=== PATIENT | female | born 1960 | race African-American/Black ===

== ENCOUNTER 2016-04-18 19:12 | Emergency (ER) | payer MEDICAID, OTHER ==
[~2016-04-18] VITALS: Ht 165.1 cm; Wt 111.6 kg
[~2016-04-18 19:12] MED LIST: IBUP-1060 PO; OXYC-323 PO
[2016-04-18 19:29] VITALS: BP 185/86
[2016-04-18] MEDS ORDERED: OXYCODONE/APAP 7.5/325 TABLET. PO ONE (19:45)
[2016-04-18] MEDS ORDERED: OXYC-323 PO (19:59)
--- NOTE | 2016-04-18 19:59 | PHYS DOC ---
Past Medical History Past Medical History: Coagulopathy, Fibromyalgia, Other Additional Past Medical Histor: chronic bronchitis, prolapsed microvalve, endometriosis Past Surgical History: Other Additional Past Surgical Histo: hernia sx Alcohol Use: None Drug Use: None Adult General Chief Complaint Chief Complaint: SHOULDER INJURY HPI HPI Patient is a 56 year old female with history of fibromyalgia who presents complaining of persistent right shoulder pain since a fall on Sunday. She was seen on 04/14/16. She was discharged home. An x-ray or shoulder was done that evening. She was called the following morning by the emergency physician as a radiology overread found findings suspicious for a fracture of the right greater tuberosity. Patient denies numbness or motor weakness. She has pain in her left shoulder hips and back as well, but this is not as severe. She has limitation of range of motion of the right shoulder due to pain. He was instructed after being called Sunday to return to the emergency department, but due to the bad weather over the weekend she stayed home. Review of Systems Review of Systems Constitutional: Denies fever or chills Eyes: Denies change in visual acuity, redness, or eye pain HENT: Denies nasal congestion or sore throat Respiratory: Denies cough or shortness of breath Cardiovascular: Denies chest pain GI: Denies abdominal pain, nausea, vomiting, bloody stools or diarrhea : Denies dysuria or hematuria Musculoskeletal: Reports right shoulder pain limitation or range of motion of the right shoulder secondary to pain. Also complains of mild pain in the left shoulder, bilateral hips, and back. Integument: Denies rash or skin lesions Neurologic: Denies headache, focal weakness or sensory changes Current Medications Current Medications Current Medications Medications (Trade) Dose Ordered Sig/Kevan Start Time Stop Time Status Last Admin Dose Admin Oxycodone/ Acetaminophen (Percocet 7.5/ 325) 1 tab 1X ONCE 04/18/16 19:45 04/18/16 19:46 DC 04/18/16 19:45 1 TAB Allergies Allergies Allergies Coded Allergies Type Severity Reaction Last Updated Verified codeine Allergy Unknown 04/14/16 Yes Physical Exam Physical Exam Constitutional: Well developed, well nourished, no acute distress, non-toxic appearance. HENT: Normocephalic, atraumatic, bilateral external ears normal, oropharynx moist, no oral exudates, nose normal. Eyes: PERRLA, EOMI, conjunctiva normal, no discharge. Neck: Normal range of motion, no tenderness, supple, no stridor. Cardiovascular:Heart rate regular rhythm, no murmur Lungs & Thorax: Bilateral breath sounds clear to auscultation Abdomen: Bowel sounds normal, soft, no tenderness, no masses, no pulsatile masses. Skin: Warm, dry, no erythema, no rash. Back: No tenderness, no CVA tenderness. Extremities: Significant tenderness to palpation over the entire right shoulder. No obvious swelling. Limitation of range of motion secondary to pain. Painful range of motion in the right shoulder. All other extremities appear atraumatic. Neurologic: Alert and oriented X 3, normal motor function, normal sensory function, no focal deficits noted. Psychologic: Affect normal, judgement normal, mood normal. Current Patient Data Vital Signs Vital Signs Date Time Temp Pulse Resp B/P Pulse Ox O2 Delivery O2 Flow Rate FiO2 04/18/16 19:45 16 Room Air 04/18/16 19:30 97.4 68 185/86 97 97.4 EKG EKG [] Radiology/Procedures Radiology/Procedures [] Course & Med Decision Making Course & Med Decision Making Pertinent Labs and Imaging studies reviewed. (See chart for details) I have reviewed the right shoulder x-ray from 04/14/16. I do see a small lucency under the greater tuberosity which is certainly suspicious for fracture. Given the patient's amount of pain, I'm going to put her in the right shoulder mobilizer, write her for Percocet, and give her the number for orthopedic follow-up. Return precautions were discussed and all questions were answered prior to discharge. Dragon Disclaimer Dragon Disclaimer This electronic medical record was generated, in whole or in part, using a voice recognition dictation system. Departure Departure Impression: Primary Impression: Greater tuberosity of humerus fracture Disposition: 01 HOME, SELF-CARE Condition: GOOD Referrals: NO PCP (PCP) AGUSTÍN SANTOS MD Patient Instructions: Shoulder Fracture Additional Instructions: Take the prescribed pain medication as directed, as needed. Wear the shoulder immobilizer throughout the day. He can take this off when you sleep or when you get in the shower. Follow up with the orthopedic surgeon, Dr. Arreguin, as soon as he can schedule you for an appointment. I recommend calling his office tomorrow. Is also probably a good idea to follow up with your primary care physician to let them know that you have fractured your shoulder. Scripts Oxycodone/Apap 5-325 (Percocet 5-325 Mg Tablet)1 Each Tablet1-2 Tab PO Q4-6HRS PRN PAIN #40 TAB Ref 0 Prov:ROBINSON MCHUGH MD 04/18/16 Problem Qualifiers Primary Impression: Greater tuberosity of humerus fracture Encounter type: initial encounter Fracture type: closed Fracture alignment : nondisplaced Laterality: right Qualified Code: S42.254A - Nondisplaced fracture of greater tuberosity of right humerus, initial encounter for closed fracture ROBINSON MCHUGH MD Apr 18, 2016 19:39
== END 2016-04-18 20:12 | disposition home or self-care (01) ==
LOC: ER 19:12
DX: S42.254A Nondisplaced fracture of greater tuberosity of right humerus, initial encounter for closed fracture (principal); M25.512 Pain in left shoulder; M25.559 Pain in unspecified hip; M54.9 Dorsalgia, unspecified; M79.7 Fibromyalgia; Z88.5 Allergy status to narcotic agent; W19.XXXA Unspecified fall, initial encounter; Y93.89 Activity, other specified; Y92.89 Other specified places as the place of occurrence of the external cause; Y99.8 Other external cause status
CPT/HCPCS: 29105; 99283-25

== ENCOUNTER → 2016-05-24 | Outpatient (CLI) | payer MEDICAID ==
[2016-04-18 19:30] VITALS: BP 185/86
--- NOTE | 2016-05-24 13:33 | KCIC ---
PROCEDURE MR of the right shoulder HISTORY Right shoulder pain and decreased range of motion. Injury May 15, 2016. COMPARISON None TECHNIQUE Standard images are obtained. FINDINGS Acromioclavicular joint is mildly degenerative. There are undersurface osteophytes with some mass effect upon the supraspinatus. Full-thickness tear of the supraspinatus tendon measures 2.5 centimeters AP diameter with 2.0 cm retraction. Mild muscle atrophy. Tendinosis with signal and thickening through the infraspinatus tendon. Partial subscapularis tendon tear. Mild fluid in the subdeltoid bursa. The labrum evaluation is somewhat limited by motion degradation. There is degenerative signal within the superior labrum but no clear-cut tear. Small glenohumeral joint effusion. No advanced glenohumeral primary osteoarthritis. The biceps tendon is intact. No bone lesion or acute fracture. No acute soft tissue injury. IMPRESSION 1. Near complete rupture of the supraspinatus tendon with moderate retraction. Mild partial subscapularis tendon tear. 2. Small joint effusion. Electronically signed by: Rubin Marie MD (May 24, 2016 13:32:05)
== END | disposition home or self-care (01) ==
LOC: KCIC MRI 10:35
PROVIDERS: ATTEND Nurse Practitioner Gerontology
DX: S49.91XA Unspecified injury of right shoulder and upper arm, initial encounter (principal)
CPT/HCPCS: 73221

== ENCOUNTER 2016-08-09 09:33 | Observation (INO) | payer MEDICAID ==
[2016-08-09] VITALS (7 sets, daily range): BP systolic 135–166; BP diastolic 71–87
[~2016-08-09] VITALS: Ht 165.1 cm; Wt 107.0 kg
[~2016-08-09 09:33] MED LIST changes: +BACL10TA PO; +BUPIVACAINE MPF 0.5% 30 ML VIAL. ONE; +CLON0.5T3 PO; +DULO60CA6 PO; +EPINEPHrine VIAL 30 MG/30 ML VIAL ONE; +FLUT9.9S NS; +HYDROmorphone 2 MG/ML VIAL IV PRN; +IV RINGERS,LACTATED 1000ML 1,000 ML IV SCH; +LIDO700A4 TP; +LIDOCAINE 1% 1 ML SYRINGE. ID PRN; +LIDOCAINE 1% 20 ML VIAL. ONE; +MELA3TAB PO; +OLIV250C PO; +ONDANSETRON PF 4 MG/2 ML VIAL. IV PRN; +PROAIR HFA8.5 GM INH; +PROCHLORPERAZINE 10 MG/2 ML VIAL. IV PRN; +SODI30SP NS; +fentaNYL PF VIAL 100 MCG/2 ML VIAL IV PRN
[2016-08-09 10:07] LABS: NEG OBC UR NEG; POS OBC UR POS
[2016-08-09] MEDS ORDERED: PROPOFOL 20 ML IV ONE (10:52)
[2016-08-09] MEDS ORDERED: LIDOCAINE 2% 100 MG/5 ML SYRINGE. ONE (10:52)
[2016-08-09] MEDS ORDERED: fentaNYL PF VIAL 100 MCG/2 ML VIAL ONE ×2 (10:52→12:20)
[2016-08-09] MEDS ORDERED: MIDAZOLAM HCL/PF 2 MG/2 ML VIAL. ONE (11:01)
--- NOTE | 2016-08-09 11:20 | DISCH ---
DISCHARGE INSTRUCTIONS Condition on Discharge Condition on Discharge: Stable Activity After Discharge Activity Instructions for Disc: Other, see below Other activity instructions: arm to remain in sling Bathing Instructions: Shower-keep dressing dry Weight Bearing Status after Di: Non weight bearing Diet after Discharge Diet after Discharge: Regular Wound Incision Care Wound/Incision Care: Ice to area for comfort, Keep wound/cast CDI, Change dressing Contacting the DRCarmen after DC Call your doctor for: Concerns you may have Follow-Up Follow up with: Lurdes or Venkata in 2wks MARY VELOZ II, MD August 09, 2016 11:20
[2016-08-09] MEDS ORDERED: SUCCINYLCHOLINE 200 MG/10 ML VIAL. ONE (11:48)
[2016-08-09] MEDS ORDERED: DESFLURANE 61 TO 120 MINUTES IH ONE (12:24)
[2016-08-09] MEDS ORDERED: PHENYLEPHRINE in 0.9% NACL PF 1 MG/10 ML DISP.SYRIN. IV ONE (12:24)
[2016-08-09] MEDS ORDERED: DEXAMETHASONE SOD PHOS 20 MG/5 ML VIAL. ONE (12:24)
[2016-08-09] MEDS ORDERED: ONDANSETRON PF 4 MG/2 ML VIAL. ONE (13:04)
--- NOTE | 2016-08-09 13:04 | PDOC ---
BRIEF OPERATIVE NOTE Date: August 09, 2016 Pre-Op Diagnosis R RTC tear Post-Op Diagnosis same Procedure Performed R shoulder arthroscopic RTC repair Surgeon Venkata Handy Man Komal Anesthesiologist Eugenio Anesthesia Type: General, Regional Blood Loss 10mL Complications none MARY VELOZ II, MD August 09, 2016 13:03
[2016-08-09] MEDS: MORPHINE SULFATE 2 MG/ML DISP.SYRIN. IV PRN ×2 (13:16→13:50)
[2016-08-09] MEDS ORDERED: ALBUTEROL SULFATE 2.5 MG/3 ML NEBU. ONE (13:25)
[2016-08-09] MEDS ORDERED: ALBUTEROL SULFATE 2.5 MG/3 ML NEBU. NEB ONE (13:30)
[2016-08-09] MEDS ORDERED: IV DEXTROSE 5 %-0.45 % NACL 1,000 ML IV SCH (14:24)
[2016-08-09] MEDS ORDERED: traMADol 50 MG TABLET PO PRN ×2 (14:30)
[2016-08-09] MEDS ORDERED: HYDROcodone/APAP 10/325 1 TAB TABLET PO PRN (14:30)
[2016-08-09] MEDS ORDERED: PROCHLORPERAZINE 5 MG TABLET. PO PRN (14:30)
[2016-08-09] MEDS ORDERED: CALCIUM CARBONATE 500 MG TAB.CHEW PO PRN (14:30)
[2016-08-09] MEDS ORDERED: HYDROcodone/APAP 7.5/325MG 1 TAB TABLET PO PRN (14:30)
[2016-08-09] MEDS ORDERED: BACLOFEN 10 MG TABLET. PO PRN (14:30)
[2016-08-09] MEDS ORDERED: NON FORMULARY ITEM (Albuterol Sulfate (Proair Hfa Inhaler) 1 PUFF) INH PRN (14:30)
[2016-08-09] MEDS ORDERED: MORPHINE SULFATE 2 MG/ML DISP.SYRIN. IV PRN (14:30)
[2016-08-09] MEDS ORDERED: oxyCODONE/APAP 5/325 1 TAB TABLET PO PRN (14:30)
[2016-08-09] MEDS ORDERED: METOCLOPRAMIDE HCL 10 MG/2 ML VIAL. IV PRN (14:30)
[2016-08-09] MEDS ORDERED: 0.9 % SODIUM CHLORIDE 10 ML DISP.SYRIN. IV PRN (14:30)
[2016-08-09] MEDS ORDERED: ZOLPIDEM 5 MG TABLET. PO PRN (14:30)
[2016-08-09] MEDS ORDERED: clonazePAM 0.5 MG TABLET PO PRN (14:30)
[2016-08-09] MEDS ORDERED: SODIUM CHLORIDE 0.65% NASAL SPRAY 45ML BOTTLE. NS PRN (14:30)
[2016-08-09] MEDS ORDERED: DEXTROSE 50% 25 GM / 50ML DISP.SYRIN. IV PRN (14:30)
[2016-08-09] MEDS ORDERED: ALBUTEROL SULFATE 2.5 MG/3 ML NEBU. NEB PRN (15:30)
[2016-08-09] MEDS: oxyCODONE/APAP 7.5/325 1 TAB TABLET PO PRN ×2 (17:51→21:07)
--- NOTE | 2016-08-09 18:31 | OP ---
DATE OF SURGERY: 08/09/2016 SURGEON: Amarjit Veloz MD PROMOTIONAL DEMONSTRATOR: Iliana Sauceda. ANESTHESIA: General plus regional nerve block. PREOPERATIVE DIAGNOSIS: Right shoulder rotator cuff tear. POSTOPERATIVE DIAGNOSIS: Right shoulder rotator cuff tear. PROCEDURE PERFORMED: Arthroscopic right shoulder rotator cuff repair. COMPONENTS INSERTED: [employer] Healicoil anchors x 2. COMPLICATIONS: None. ESTIMATED BLOOD LOSS: 10 mL. FINDINGS: 1. The patient had a full-thickness tear of supraspinatus was minimally retracted. The tear involved anterior portion of the infraspinatus as well. 2. She had some softening and fissuring of her anteroinferior glenoid cartilage, but otherwise humeral head and glenoid cartilage was intact. 3. Labrum was intact circumferentially. 4. Minor amount of fraying without any swelling or edema in the biceps tendon. 5. No loose bodies present. REASON FOR PROCEDURE: The patient is a very pleasant 56-year-old female who had persistent pain and shoulder weakness, resolved. Clinical and radiographic workup including MRI were performed and discussed with the patient. Please see my outpatient note for full details. We had discussion of risks, benefits, alternatives for her surgery and she elected to proceed. DESCRIPTION OF PROCEDURE: The patient was greeted in the preoperative area by myself. Correct extremity was marked and verified. She was brought back to the preoperative holding area where she had a regional nerve block placed by the anesthesiology team. She was then brought back to the operative suite and antibiotics were started en route. Once in the OR, she was transferred gently supine to the OR table after successful induction of general anesthesia. We then set her up in beach chair position with a large pad under her legs. All pressure points were padded. She was secured to the bed. C-spine was maintained in neutral position. We then proceeded to prep and drape her right upper extremity and shoulder girdle in our usual sterile fashion and conducted a standard preoperative timeout. Ioban was used at the periphery. I then palpated and marked her surface anatomy and used a spinal needle to localize the posterosuperior portal and incised skin in accordance with this. After accomplishing this, I introduced the blunt arthroscopic trocar into the glenohumeral joint. I then used the spinal needle to localize the anterosuperior portal and inserted a switching stick after incising the skin. I then dilated the hole, which to the switching stick and inserted my probe and conducted my diagnostic arthroscopy with the above noted findings. While still in the glenohumeral joint, I used a spinal to localize the lateral portal and incised skin in accordance with this. I dilated the hole and then introduced my shaver to debride the rotator cuff tendon and footprint from this vantage point. I then removed the shaver and withdrew the camera and replaced the blunt arthroscopic trocar inserted into the subacromial space. I then reinserted the camera and shaver and then debrided the bursa with combination of shaver and electrocautery. I then continued on debriding the rotator cuff and the footprint taking care not to decorticate. After this, I tested the mobility of the tendon and was quite mobile. I then used spinal needle to localize an accessory anterosuperior portal for suture retrieval and incised skin in accordance with this and then dilated that hole as well. I then use a tap to create 2 holes for my Healicoil anchor and was then inserted these. I then shuttled the sutures out through the accessory portal. I then used the Braun and [employer] passing device to shuttle the four suture limbs through in a simple configuration. I then tied these down from posterior to anterior using arthroscopic knot tying techniques. At the conclusion of the repair, I tested with gentle rotation noted no gapping at the bone tendon interface. I then took my final pictures then removed all excess arthroscopic fluid and then I withdrew the arthroscopic instrumentation. There were no complications. At the conclusion of surgery, the patient's portal sites were closed with simple interrupted 3-0 nylon. The arm and shoulder were cleansed and dried and a sterile dressing was applied followed by placed into an abduction pillow sling. Postop plan is to discharge her home today. She will be nonweightbearing x 6 weeks. We will get start PT when we see her back in 2 weeks and I will see her follow up with me in 2 weeks, sooner should problems arise. AMARJIT VELOZ MD DR: GRIS/sandra JOB#: [id number] / [id number] NEIL
[2016-08-09] MEDS: CELECOXIB 200 MG CAPSULE. PO SCH (21:00)
[2016-08-09] MEDS ORDERED: MELATONIN 2 MG PO SCH (21:00)
[2016-08-09] MEDS: BENZONATATE 100 MG CAPSULE. PO SCH (21:37)
[2016-08-10] MEDS: oxyCODONE/APAP 7.5/325 1 TAB TABLET PO PRN ×5 (02:02→19:09)
[2016-08-10 02:53] VITALS: BP 149/85
[2016-08-10] MEDS ORDERED: MAGNESIUM HYDROXIDE 2,400 MG/30 ML ORAL.SUSP. PO PRN (06:00)
[2016-08-10 06:34] VITALS: BP 137/90
--- NOTE | 2016-08-10 06:34 | ACF ---
Admission Forms Criteria MUSCULOSKELETAL DISEASE GRG Clinical Indications for Admission to Inpatient Care (Place 'X' for any and all applicable criteria): Hospital admission is needed for appropriate care of the patient because of 1 or more of the following: [ ]I. Fracture, dislocation, or other musculoskeletal injury requiring inpatient care(medical) as indicated by 1 or more of the following(4)(5)(6)(7) [ ]a) Vertebral fracture requiring observation for instability or neurologic compromise (8) [ ]b) Compartment syndrome (proven or cannot be ruled out during observation level of care) (9) [ ]c) Limb-threatening injury [ ]d) Major injury requiring inpatient stabilization such as traction initiation or external fixation before internal fixation or closure of complex or open fracture [ ]e) Major injury requiring inpatient treatment after emergency or observation level care (as appropriate) [ ]f) Severe pain requiring acute inpatient management [ ]g) Injury with suspicion of abuse or neglect (eg., child, dependent elderly) [ ]II. Newly diagnosed or suspected bone, joint, or orthopedic device infection (e.g., osteomyelitis, septic arthritis) needing 1 or more of the following(1)(2)(3) [ ]a) IV antibiotics that cannot be initiated in other than inpatient setting (e.g., patient too unstable or home infusion not available) [ ]b) Device removal or replacement [ ]c) Bone or soft tissue debridement [ ]d) Joint drainage (drain placement or repetitive aspirations) [ ]III. Severe rheumatologic disease (e.g., systemic lupus erythematosus, rheumatoid arthritis) with complications or comorbidities (Also use Optimal Recovery Care Criteria or General Recovery Criteria as appropriate on the basis of predominant condition), including 1 or more of the following( 10)(11)(12)(13) [ ]a) Severe infection (e.g., SPRING COVERER infection, sepsis) (14) [ ]b) Respiratory complications, including 1 or more of the following : [ ]i) Pleural effusion with respiratory compromise [ ]ii) Pulmonary hypertension with congestive failure [ ]iii) Respiratory failure [ ]iv) Pulmonary hemorrhage (15) [ ]c) Hematologic disease, including 1 or more of the following: [ ]i) Coagulopathy with bleeding [ ]ii) Thrombosis with hypercoagulable state [ ]iii) Thrombotic thrombocytopenic purpura [ ]d) Cerebritis with seizures, psychosis, or other severe abnormalities [ ]e) Vertebral destruction with monitoring needed for cervical myelopathy& possible respiratory compromise [ ]f) Exacerbation that requires inpatient treatment (e.g., intravenous immunosuppression) (16) [ ]g) Acute renal failure [ ]h) Cerebritis with seizures, psychosis, Altered mental status, or other neurologic abnormalities [ ]i) Pericardial effusion with tamponade [ ]j) Vertebral destruction, with monitoring needed for cervical myelopathy and possible respiratory compromise [ ]IV. Severe vasculitis with complications or comorbidities (Also use Optimal Recovery Care Criteria General Recovery Criteria as appropriate on the basis of predominant condition), including 1 or more of the following(11)(12)(17)(18)(19)(20) [ ]a) Exacerbation that requires inpatient treatment (e.g., intravenous immunosuppression) (19)(21) [ ]b) Pulmonary hemorrhage (15) [ ]c) SPRING COVERER vasculitis with seizures, psychosis, Altered mental status that is severe or persistent, or other severe abnormalities (22) [ ]d) Cerebral infarction [ ]e) Gastrointestinal ischemia [ ]f) Gangrene or threatened amputation [ ]g) Renal failure (16) [ ]h) Other significant complications of vasculitis ( eg., tissue or organ ischemia, organ dysfunction ) [ ]V. Severe myopathy as indicated by 1 or more of the following (28)(29) [ ]a) New onset of airway compromise or inability to swallow [ ]b) Respiratory deterioration with observation needed for impending respiratory failure [ ]c) Exacerbation that requires inpatient treatment (e.g., intravenous immunosuppression) [ ]. Severe crystal gout (arthropathy) indicated by 1 or more of the following (23)(24) [ ]a) Severe pain requiring acute inpatient management [ ]b) Exacerbation that requires inpatient treatment (e.g., intravenous treatment) [ ]VII.Rhabdomyolysis and 1 or more of the following (25)(26)(27) [ ]a) Acute renal failure [ ]b) Need for intravenous hydration after emergency or observation level care (as appropriate) [ ]c) Inability to maintain oral hydration [ ]d) Change in mental status [ ]e) Electrolyte abnormality that remains after emergency or observation level care (as appropriate) [ ]VIII Post amputation complication, as indicated by ANY ONE of the following [ ]a) Infection [ ]b) Dehiscence [ ]c) Myodesis failure [ ]IX. Severe pain requiring acute inpatient management due to musculoskeletal condition [ ]X. Musculoskeletal Disease and ALL of the following: [ ]a) Symptom or finding for which emergency and observation care have failed or are not considered appropriate (Use General Criteria: Observation Care as appropriate) [ ]b) Presence of ANY ONE of the following [ ]i) A General Admission Criteria [ ]ii) A Pediatric General Admission Criteria The original [facility] [employer] content created by [employer] has been revised. The portions of the content which have been revised are identified through the use of italic text or in bold, and [facility] has neither reviewed nor approved the modified material. All other unmodified content is copyright [facility] [employer]. Please see references footnoted in the original [facility] edition 2016 JAYLEN WILLIS August 10, 2016 06:34 MARY VELOZ II, MD August 11, 2016 09:15
[2016-08-10] MEDS: CELECOXIB 200 MG CAPSULE. PO SCH (08:14)
[2016-08-10] MEDS: BENZONATATE 100 MG CAPSULE. PO SCH ×2 (08:17→14:56)
--- NOTE | 2016-08-10 08:24 | PDOC ---
ORTHO PROGRESS NOTES Subjective She tells me that she received a breathing treatment last night and IV pain medicine and these help her get through the night. She is feeling a little bit better today. She is feeling back to her baseline breathing. Vitals Vital Signs Date Time Temp Pulse Resp B/P (MAP) Pulse Ox O2 Delivery O2 Flow Rate FiO2 08/10/16 06:36 20 08/10/16 06:34 97.8 67 137/90 (106) 96 Nasal Cannula 2.0 97.8 Labs Laboratory Tests Test 08/09/16 09:49 Urine Test Negative (NEG) Laboratory Tests Test 08/09/16 09:49 Urine Test Negative (NEG) Notes She is awake and alert. Sitting in bed. Dressings are intact. Motor and sensation are intact median, radial, and ulnar nerves in her hand. Assessment and Plan She underwent an arthroscopic right shoulder rotator cuff repair was admitted for pain control and observation regarding her chronic bronchitis. She feels she is back to baseline regarding this. MARY VELOZ II, MD August 10, 2016 08:24
--- NOTE | 2016-08-10 08:27 | PDOC3 ---
Discharge Summary Visit Information Date of Admission: August 09, 2016 Date of Discharge: August 10, 2016 Admitting Diagnosis: right shoulder arthroscopic rotator cuff repair, chronic Final Diagnosis Same as admitting Brief Hospital Course Allergies Allergies Coded Allergies Type Severity Reaction Last Updated Verified codeine Allergy Intermediate Unknown 08/09/16 Yes meperidine Allergy Intermediate Hives 08/09/16 Yes Vital Signs Vital Signs Date Time Temp Pulse Resp B/P (MAP) Pulse Ox O2 Delivery O2 Flow Rate FiO2 08/10/16 06:36 20 08/10/16 06:34 97.8 67 137/90 (106) 96 Nasal Cannula 2.0 97.8 Lab Results Laboratory Tests Test 08/09/16 09:49 Urine Test Negative (NEG) Laboratory Tests Test 08/09/16 09:49 Urine Test Negative (NEG) Brief Hospital Course Ms. Avila is a 56 old who was admitted for observation for pain control and respiratory status after arthroscopic rotator cuff repair. She tolerated surgery well recovered well from anesthesia patella and she felt like she is a little bit more congestion in her chest. She received a breathing treatment and IV pain medicine. At the time of discharge she was stable from medical standpoint and pain was controlled on oral pain medicine. She did receive instruction from physical therapy as well. Her hospital course was essentially uneventful. Discharge Information Condition at Discharge: Stable Follow Up: Weeks Disposition/Orders: D/C to Home Scheduled Melatonin (Melatonin), 2 MG PO HS, (Reported) Scheduled PRN Albuterol Sulfate (Proair Hfa Inhaler), 1 PUFF INH PRN Q6HRS PRN for SHORTNESS OF BREATH, (Reported) Baclofen (Baclofen), 1 TAB PO TID PRN for BREAKTHROUGH PAIN, (Reported) Clonazepam (Clonazepam), 0.5 MG PO BID PRN for ANXIETY / AGITATION, (Reported) Fluticasone Propionate (Flonase Allergy Relief), 2 SPRAYS NS PRN DAILY PRN for ALLERGIES, (Reported) Sodium Chloride (Saline Nasal Celina), 30 ML NS PRN PRN for ALLERGIES, (Reported) Discontinued Medications Duloxetine Hcl (Cymbalta), 90 MG PO DAILY, (Reported) Lidocaine (Lidoderm), 1 PATCH TP PRN DAILY PRN for PAIN, (Reported) [place] Extract ([place] Extract), 250 MG PO DAILY, (Reported) Patient Instructions Patient Instructions She is to be discharged home. She was instructed on active assisted range of motion and pendulum exercises. She will hold off on formal PT until she follows up with me in clinic. We'll see her back in 2 weeks, sooner should problems arise. She is to leave her right upper extremity in the sling except for showering. She is to be nonweightbearing for 6 weeks MARY VELOZ II, MD August 10, 2016 08:26
[2016-08-10] MEDS ORDERED: SENNOSIDES/DOCUSATE 8.6/50MG TABLET. PO SCH (09:00)
[2016-08-10] MEDS ORDERED: MULTIVITAMIN with MINERAL TABLET. PO SCH (09:00)
[2016-08-10] MEDS ORDERED: FLUTICASONE 50MCG/NASAL SPRAY 16GM BOTTLE. NS PRN (09:00)
[2016-08-10] MEDS ORDERED: DOCU-27 PO (10:26)
[2016-08-10] MEDS ORDERED: ONDA4TAB7 PO (10:27)
[2016-08-10] MEDS ORDERED: OXYC-244 PO (10:27)
[2016-08-10 11:21] VITALS: BP 121/67
[2016-08-10 15:05] VITALS: BP 141/83
[2016-08-10] MEDS ORDERED: BISACODYL 10 MG SUPP.RECT. PR PRN (16:00)
[2016-08-10 18:15] VITALS: BP 128/88
== END 2016-08-10 19:20 | disposition home or self-care (01) ==
LOC: SURG 09:33 → 4 SOUTHEST 14:35
PROVIDERS: ADMIT Orthopaedic Surgery Sports Medicine; ATTEND Orthopaedic Surgery Sports Medicine
DX: M75.101 Unspecified rotator cuff tear or rupture of right shoulder, not specified as traumatic (principal); J42 Unspecified chronic bronchitis
CPT/HCPCS: 29827; 81025; 94250; 94640; 94760; 96374; 97162; 97530; C1782; G0378; G0379; G8978; G8979; G8980; J0171; J0330; J0690; J1100; J2250; J2270; J2370; J2405; J2704; J3010; J3490; J7120